=== PATIENT | female | born 1980 | race African-American/Black ===

== ENCOUNTER 2019-10-16 23:29 | Emergency (ER) | payer SELFPAY ==
[~2019-10-16] VITALS: Ht 167.6 cm; Wt 91.6 kg
[2019-10-16 23:50] VITALS: BP 132/88
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
== END 2019-10-17 00:30 | disposition home or self-care (01) ==
LOC: ER 23:29
DX: M54.5 Low back pain (principal); M54.6 Pain in thoracic spine; M25.511 Pain in right shoulder; M25.512 Pain in left shoulder; V89.2XXA Person injured in unspecified motor-vehicle accident, traffic, initial encounter; Y93.89 Activity, other specified; Y92.89 Other specified places as the place of occurrence of the external cause; Y99.8 Other external cause status
CPT/HCPCS: 99281